=== PATIENT | female | born 1945 | race Caucasian/White ===

== ENCOUNTER → 2016-11-21 | Outpatient (CLI) | payer MEDICARE, OTHER ==
[~2016-11-21] MED LIST: AMLODIPINE BESY10 MG; CADUET 5 MG/401 TAB PO; DIOVAN HCT 160-1 TAB PO; DYAZIDE 37.5/251 CAP PO; MEDROL DOSEPAK4 MG DOB; NORVASC PO
--- NOTE | ~2016-11-21 | MY11 ---
[facility] A Service of [facility] RADIOLOGY TEXT RESULTS PATIENT: TERRIE VALDERRAMA LOCATION: [facility] : 47 UNIT #: [id number] AGE: [address]: Nile Lawrence MD SEX: F ORDER DR: [id number] [address] [id number] O MR#: [id number] Acc #: [id number] NAME: TERRIE VALDERRAMA : 1945 SEX: F STUDY DATE/TIME: 11/21/2016 11:15 UNIT: [facility] ROOM: STUDY DESCRIPTION: MY Mammogram Screening Dig Phuc Attending Physician: Nile Lawrence M.D. Referring Physician: Nile Lawrence M.D. Ordering Physician: iNle Lawrence M.D. Primary Care Physician: Nile Lawrence M.D. MEDICAL IMAGING REPORT This report is preliminary unless electronic signature is present. EXAM Digital screening mammogram 11/21/2016 HISTORY 71-year-old woman, no risk elevation. Annual screening. COMPARISON STUDIES Comparison mammograms 06/10/2007, 01/31/2013, 06/02/2014, 08/20/2015. FINDINGS Digital imaging of each breast was completed utilizing a two-view examination of each breast in craniocaudal and mediolateral-oblique projections. Review and interpretation of digital mammograms include a second review in conjunction with FDA-approved CAD device. There is a normal parenchymal presentation bilaterally consistent with the patient's age. There are no breast masses imaged and no parenchymal asymmetry is visualized. There are no suspicious microcalcifications and I see no focal architectural disturbance. Breast parenchyma is fatty replaced. IMPRESSION Negative screening digital mammogram. One-year followup recommended. Patients over the age of 40 are entered into a reminder system with target due date for the next mammogram. A result letter will also be sent to the patient. BIRADS: 1 Negative [facility] A Service of [facility] RADIOLOGY TEXT RESULTS PATIENT: TERRIE VALDERRAMA LOCATION: [facility] : 47 UNIT #: [id number] AGE: [address]: Nile Lawrence MD SEX: F ORDER DR: Dictated by... Gilberto Seymour M.D. THIS IS AN ELECTRONICALLY VERIFIED REPORT Gilberto Seymour M.D. at 11/21/2016 3:50 PM JBB/pcl TD: 11/21/2016 15:30 JOB #: [id number] MEDICAL IMAGING REPORT Page 1 of 1
== END | disposition home or self-care (01) ==
LOC: SMAM 10:30
DX: Z12.31 Encounter for screening mammogram for malignant neoplasm of breast (principal)
CPT/HCPCS: G0202